=== PATIENT | female | born 1985 | race Hispanic/Latino ===

== ENCOUNTER → 2017-03-31 | Outpatient (CLI) | payer OTHER | LOC: M WUC 13:45 | DX: S60.211A Contusion of right wrist, initial encounter (principal); S90.01XA Contusion of right ankle, initial encounter; X58.XXXA Exposure to other specified factors, initial encounter; Y92.9 Unspecified place or not applicable; Y93.9 Activity, unspecified | CPT/HCPCS: 73110 ==